=== PATIENT | male | born 1955 | race Caucasian/White ===

== ENCOUNTER → 2016-10-13 | Outpatient (CLI) | payer OTHER ==
[~2016-10-13] MED LIST: ALLO300 PO; AMMO225L14 TP; ASPI-1093 PO; CEPH500 PO; DULA0.75 SQ; GEMF600T3 PO; GLIP10 PO; LISI-660 PO; METF500T4 PO; SIMV-261 PO
[2016-10-13 12:08] VITALS: BP 140/78
== END | disposition home or self-care (01) ==
LOC: HBOWC 10:58
PROVIDERS: ATTEND Emergency Medicine
DX: E11.621 Type 2 diabetes mellitus with foot ulcer (principal); L97.511 Non-pressure chronic ulcer of other part of right foot limited to breakdown of skin; E11.69 Type 2 diabetes mellitus with other specified complication; M86.8X7 Other osteomyelitis, ankle and foot; E78.00 Pure hypercholesterolemia, unspecified; I10 Essential (primary) hypertension; E66.9 Obesity, unspecified
CPT/HCPCS: 97597

== ENCOUNTER → 2016-10-29 | Outpatient (CLI) | payer OTHER ==
[2016-10-29 09:50] VITALS: BP 138/64
== END | disposition home or self-care (01) ==
LOC: HBOWC 09:05
PROVIDERS: ATTEND Emergency Medicine
DX: E11.621 Type 2 diabetes mellitus with foot ulcer (principal); L97.514 Non-pressure chronic ulcer of other part of right foot with necrosis of bone; E11.69 Type 2 diabetes mellitus with other specified complication; M86.8X7 Other osteomyelitis, ankle and foot; I10 Essential (primary) hypertension; E66.9 Obesity, unspecified; E78.00 Pure hypercholesterolemia, unspecified; Z89.411 Acquired absence of right great toe; Z89.421 Acquired absence of other right toe(s)
CPT/HCPCS: 11044

== ENCOUNTER → 2016-11-12 | Outpatient (CLI) | payer OTHER ==
[~2016-11-12] MED LIST changes: +LIDOCAINE HCL 2% 5 ML JELLY TP ONE
[2016-11-12 14:44] VITALS: BP 129/78
== END | disposition home or self-care (01) ==
LOC: HBOWC 13:48
PROVIDERS: ATTEND Emergency Medicine
DX: E11.621 Type 2 diabetes mellitus with foot ulcer (principal); L97.514 Non-pressure chronic ulcer of other part of right foot with necrosis of bone; E11.69 Type 2 diabetes mellitus with other specified complication; M86.68 Other chronic osteomyelitis, other site; I10 Essential (primary) hypertension; E66.9 Obesity, unspecified; E78.00 Pure hypercholesterolemia, unspecified; L84 Corns and callosities; Z89.411 Acquired absence of right great toe
CPT/HCPCS: 11720; 97597; 97598

== ENCOUNTER → 2016-11-25 | Outpatient (CLI) | payer OTHER ==
[~2016-11-25] MED LIST changes: -LIDOCAINE HCL 2% 5 ML JELLY TP ONE
[2016-11-25 11:39] VITALS: BP 125/71
== END | disposition home or self-care (01) ==
LOC: HBOWC 10:33
PROVIDERS: ATTEND Emergency Medicine
DX: E11.621 Type 2 diabetes mellitus with foot ulcer (principal); L97.511 Non-pressure chronic ulcer of other part of right foot limited to breakdown of skin; E11.69 Type 2 diabetes mellitus with other specified complication; M86.671 Other chronic osteomyelitis, right ankle and foot; I10 Essential (primary) hypertension; E66.9 Obesity, unspecified; E78.00 Pure hypercholesterolemia, unspecified; B35.1 Tinea unguium; Z89.421 Acquired absence of other right toe(s); Z89.411 Acquired absence of right great toe
CPT/HCPCS: 97597

== ENCOUNTER → 2016-12-09 | Outpatient (CLI) | payer OTHER ==
[~2016-12-09] MED LIST changes: -SIMV-261 PO; +SIMV40 PO
[2016-12-09 11:47] VITALS: BP 140/77
== END | disposition home or self-care (01) ==
LOC: HBOWC 10:58
PROVIDERS: ATTEND Emergency Medicine
DX: E11.621 Type 2 diabetes mellitus with foot ulcer (principal); L97.511 Non-pressure chronic ulcer of other part of right foot limited to breakdown of skin; E11.69 Type 2 diabetes mellitus with other specified complication; M86.671 Other chronic osteomyelitis, right ankle and foot; B35.1 Tinea unguium; I10 Essential (primary) hypertension; E66.9 Obesity, unspecified; E78.00 Pure hypercholesterolemia, unspecified; Z89.421 Acquired absence of other right toe(s); Z89.411 Acquired absence of right great toe
CPT/HCPCS: 97597

== ENCOUNTER → 2016-12-29 | Outpatient (CLI) | payer OTHER ==
[~2016-12-29] MED LIST changes: +SIMV-261 PO; -SIMV40 PO
[2016-12-29 11:45] VITALS: BP 107/76
== END | disposition home or self-care (01) ==
LOC: HBOWC 10:50
PROVIDERS: ATTEND Emergency Medicine
DX: E11.621 Type 2 diabetes mellitus with foot ulcer (principal); L97.511 Non-pressure chronic ulcer of other part of right foot limited to breakdown of skin; E11.69 Type 2 diabetes mellitus with other specified complication; M86.671 Other chronic osteomyelitis, right ankle and foot; I10 Essential (primary) hypertension; E66.9 Obesity, unspecified; E78.00 Pure hypercholesterolemia, unspecified; Z89.411 Acquired absence of right great toe
CPT/HCPCS: 97597

== ENCOUNTER → 2017-01-12 | Outpatient (CLI) | payer OTHER ==
[~2017-01-12] MED LIST changes: -SIMV-261 PO; +SIMV40 PO
[2017-01-12 11:38] VITALS: BP 100/66
== END | disposition home or self-care (01) ==
LOC: HBOWC 10:56
PROVIDERS: ATTEND Emergency Medicine
DX: E11.621 Type 2 diabetes mellitus with foot ulcer (principal); L97.511 Non-pressure chronic ulcer of other part of right foot limited to breakdown of skin; E11.69 Type 2 diabetes mellitus with other specified complication; M86.671 Other chronic osteomyelitis, right ankle and foot; I10 Essential (primary) hypertension; E66.9 Obesity, unspecified; E78.00 Pure hypercholesterolemia, unspecified; B35.1 Tinea unguium; Z89.421 Acquired absence of other right toe(s); Z89.411 Acquired absence of right great toe
CPT/HCPCS: 97597

== ENCOUNTER → 2017-01-28 | Outpatient (CLI) | payer OTHER ==
[~2017-01-28] MED LIST changes: +CLOTRIMAZOLE 1% 15 GM CREAM TP ONE; +LIDOCAINE HCL 2% 5 ML JELLY TP ONE; +SIMV-261 PO; -SIMV40 PO
[2017-01-28 10:26] VITALS: BP 102/62
== END | disposition home or self-care (01) ==
LOC: HBOWC 09:54
PROVIDERS: ATTEND Emergency Medicine
DX: E11.621 Type 2 diabetes mellitus with foot ulcer (principal); L97.511 Non-pressure chronic ulcer of other part of right foot limited to breakdown of skin; E11.69 Type 2 diabetes mellitus with other specified complication; M86.671 Other chronic osteomyelitis, right ankle and foot; L85.9 Epidermal thickening, unspecified; B49 Unspecified mycosis; I10 Essential (primary) hypertension; E66.9 Obesity, unspecified; E78.00 Pure hypercholesterolemia, unspecified; Z89.411 Acquired absence of right great toe
CPT/HCPCS: 97597

== ENCOUNTER → 2017-02-11 | Outpatient (CLI) | payer OTHER ==
[~2017-02-11] MED LIST changes: -CEPH500 PO; -CLOTRIMAZOLE 1% 15 GM CREAM TP ONE; -LIDOCAINE HCL 2% 5 ML JELLY TP ONE
[2017-02-11 10:49] VITALS: BP 122/78
== END | disposition home or self-care (01) ==
LOC: HBOWC 09:30
PROVIDERS: ATTEND Emergency Medicine
DX: E11.621 Type 2 diabetes mellitus with foot ulcer (principal); L97.511 Non-pressure chronic ulcer of other part of right foot limited to breakdown of skin; E11.69 Type 2 diabetes mellitus with other specified complication; M86.8X7 Other osteomyelitis, ankle and foot; E78.00 Pure hypercholesterolemia, unspecified; B35.1 Tinea unguium; E66.9 Obesity, unspecified; Z89.411 Acquired absence of right great toe
CPT/HCPCS: 97597

== ENCOUNTER → 2017-02-25 | Outpatient (CLI) | payer OTHER ==
[2017-02-25 13:11] VITALS: BP 108/66
== END | disposition home or self-care (01) ==
LOC: HBOWC 09:50
PROVIDERS: ATTEND Emergency Medicine
DX: E11.621 Type 2 diabetes mellitus with foot ulcer (principal); L97.511 Non-pressure chronic ulcer of other part of right foot limited to breakdown of skin; E11.69 Type 2 diabetes mellitus with other specified complication; M86.671 Other chronic osteomyelitis, right ankle and foot; E66.9 Obesity, unspecified; Z89.411 Acquired absence of right great toe
CPT/HCPCS: 97597

== ENCOUNTER → 2017-03-01 | Outpatient (CLI) | payer OTHER ==
[2017-03-01 11:26] VITALS: BP 100/64
== END | disposition home or self-care (01) ==
LOC: HBOWC 09:46
PROVIDERS: ATTEND Emergency Medicine Undersea and Hyperbaric Medicine
DX: E11.621 Type 2 diabetes mellitus with foot ulcer (principal); L97.511 Non-pressure chronic ulcer of other part of right foot limited to breakdown of skin; E11.69 Type 2 diabetes mellitus with other specified complication; M86.671 Other chronic osteomyelitis, right ankle and foot; E78.00 Pure hypercholesterolemia, unspecified; I10 Essential (primary) hypertension; E66.9 Obesity, unspecified; B35.1 Tinea unguium; Z89.411 Acquired absence of right great toe; Z89.421 Acquired absence of other right toe(s)
CPT/HCPCS: 97597

== ENCOUNTER → 2017-03-09 | Outpatient (CLI) | payer OTHER ==
[2017-03-09 10:22] VITALS: BP 100/62
== END | disposition home or self-care (01) ==
LOC: HBOWC 09:28
PROVIDERS: ATTEND Emergency Medicine
DX: E11.621 Type 2 diabetes mellitus with foot ulcer (principal); L97.511 Non-pressure chronic ulcer of other part of right foot limited to breakdown of skin; E11.69 Type 2 diabetes mellitus with other specified complication; M86.671 Other chronic osteomyelitis, right ankle and foot; B35.1 Tinea unguium; I10 Essential (primary) hypertension; E66.9 Obesity, unspecified; E78.00 Pure hypercholesterolemia, unspecified; Z89.411 Acquired absence of right great toe; Z89.421 Acquired absence of other right toe(s)
CPT/HCPCS: 97597

== ENCOUNTER → 2017-03-24 | Outpatient (CLI) | payer OTHER ==
[~2017-03-24] MED LIST changes: +BACTDSB PO
[2017-03-24 10:18] VITALS: BP 126/71
== END | disposition home or self-care (01) ==
LOC: HBOWC 09:56
PROVIDERS: ATTEND Emergency Medicine Undersea and Hyperbaric Medicine
DX: E11.621 Type 2 diabetes mellitus with foot ulcer (principal); L97.511 Non-pressure chronic ulcer of other part of right foot limited to breakdown of skin; I10 Essential (primary) hypertension; E66.9 Obesity, unspecified; E11.69 Type 2 diabetes mellitus with other specified complication; M86.671 Other chronic osteomyelitis, right ankle and foot; E78.00 Pure hypercholesterolemia, unspecified; B35.1 Tinea unguium; L60.3 Nail dystrophy; Z89.411 Acquired absence of right great toe; Z89.421 Acquired absence of other right toe(s)
CPT/HCPCS: 97597

== ENCOUNTER → 2017-04-18 | Outpatient (CLI) | payer OTHER ==
[2017-04-18 10:36] VITALS: BP 102/64
== END | disposition home or self-care (01) ==
LOC: HBOWC 10:17
PROVIDERS: ATTEND Emergency Medicine
DX: E11.621 Type 2 diabetes mellitus with foot ulcer (principal); L97.511 Non-pressure chronic ulcer of other part of right foot limited to breakdown of skin; E11.69 Type 2 diabetes mellitus with other specified complication; M86.671 Other chronic osteomyelitis, right ankle and foot; I10 Essential (primary) hypertension; E66.9 Obesity, unspecified; E78.00 Pure hypercholesterolemia, unspecified; B35.1 Tinea unguium; Z89.421 Acquired absence of other right toe(s); Z89.411 Acquired absence of right great toe
CPT/HCPCS: 11720; 97597

== ENCOUNTER → 2017-05-02 | Outpatient (CLI) | payer OTHER ==
[~2017-05-02] MED LIST changes: +LIDOCAINE HCL 2% 5 ML JELLY TP ONE
[2017-05-02 10:37] VITALS: BP 129/66
== END | disposition home or self-care (01) ==
LOC: HBOWC 10:26
PROVIDERS: ATTEND Emergency Medicine
DX: E11.621 Type 2 diabetes mellitus with foot ulcer (principal); L97.511 Non-pressure chronic ulcer of other part of right foot limited to breakdown of skin; E66.9 Obesity, unspecified; E11.69 Type 2 diabetes mellitus with other specified complication; M86.671 Other chronic osteomyelitis, right ankle and foot; E78.00 Pure hypercholesterolemia, unspecified; B35.1 Tinea unguium; L60.3 Nail dystrophy; I10 Essential (primary) hypertension; Z89.411 Acquired absence of right great toe
CPT/HCPCS: 97597

== ENCOUNTER → 2017-06-01 | Outpatient (CLI) | payer OTHER ==
[~2017-06-01] MED LIST changes: -ASPI-1093 PO; +ASPI-1182 PO; -LIDOCAINE HCL 2% 5 ML JELLY TP ONE
[2017-06-01 11:27] VITALS: BP 106/58
== END | disposition home or self-care (01) ==
LOC: HBOWC 11:00
PROVIDERS: ATTEND Internal Medicine
DX: E11.621 Type 2 diabetes mellitus with foot ulcer (principal); L97.511 Non-pressure chronic ulcer of other part of right foot limited to breakdown of skin; E66.9 Obesity, unspecified; E11.69 Type 2 diabetes mellitus with other specified complication; M86.671 Other chronic osteomyelitis, right ankle and foot; E78.00 Pure hypercholesterolemia, unspecified; B35.1 Tinea unguium; I10 Essential (primary) hypertension; L60.3 Nail dystrophy; Z89.411 Acquired absence of right great toe
CPT/HCPCS: 11042

== ENCOUNTER → 2017-06-08 | Outpatient (CLI) | payer OTHER ==
[~2017-06-08] MED LIST changes: +LIDOCAINE HCL 2% 5 ML JELLY TP ONE
[2017-06-08 11:24] VITALS: BP 105/64
== END | disposition home or self-care (01) ==
LOC: HBOWC 11:04
PROVIDERS: ATTEND Internal Medicine
DX: E11.621 Type 2 diabetes mellitus with foot ulcer (principal); L97.511 Non-pressure chronic ulcer of other part of right foot limited to breakdown of skin; E11.69 Type 2 diabetes mellitus with other specified complication; M86.671 Other chronic osteomyelitis, right ankle and foot; I10 Essential (primary) hypertension; E66.9 Obesity, unspecified; E78.00 Pure hypercholesterolemia, unspecified; B35.1 Tinea unguium; Z89.411 Acquired absence of right great toe
CPT/HCPCS: 11042

== ENCOUNTER → 2017-06-15 | Outpatient (CLI) | payer OTHER ==
[~2017-06-15] MED LIST changes: +CLOTRIMAZOLE 1% 15 GM CREAM TP ONE; +DOXY100C PO; +LIDOCAINE HCL 2% 5 ML JELLY ONE; -LIDOCAINE HCL 2% 5 ML JELLY TP ONE
[2017-06-15 15:14] VITALS: BP 126/88
== END | disposition home or self-care (01) ==
LOC: HBOWC 14:05
PROVIDERS: ATTEND Internal Medicine
DX: E11.621 Type 2 diabetes mellitus with foot ulcer (principal); L97.511 Non-pressure chronic ulcer of other part of right foot limited to breakdown of skin; E11.69 Type 2 diabetes mellitus with other specified complication; M86.671 Other chronic osteomyelitis, right ankle and foot; I10 Essential (primary) hypertension; E78.00 Pure hypercholesterolemia, unspecified; B35.1 Tinea unguium; L60.3 Nail dystrophy; Z89.421 Acquired absence of other right toe(s); Z89.411 Acquired absence of right great toe
CPT/HCPCS: 11720

== ENCOUNTER → 2017-06-24 | Outpatient (CLI) | payer OTHER ==
[~2017-06-24] MED LIST changes: -BACTDSB PO; -CLOTRIMAZOLE 1% 15 GM CREAM TP ONE; +GADOBUTROL 1 MMOL/ML 10 ML VIAL IVP ONE; -LIDOCAINE HCL 2% 5 ML JELLY ONE
== END | disposition home or self-care (01) ==
LOC: RADMN 12:28
PROVIDERS: ATTEND Nurse Practitioner Adult Health
DX: M86.8X7 Other osteomyelitis, ankle and foot (principal); M62.571 Muscle wasting and atrophy, not elsewhere classified, right ankle and foot; M19.071 Primary osteoarthritis, right ankle and foot
CPT/HCPCS: 73720; A9585

== ENCOUNTER → 2017-06-24 | Outpatient (CLI) | payer OTHER ==
[~2017-06-24] MED LIST changes: +BACTDSB PO; -GADOBUTROL 1 MMOL/ML 10 ML VIAL IVP ONE; +LIDOCAINE HCL 2% 5 ML JELLY TP ONE
[2017-06-24 13:37] VITALS: BP 105/60
== END | disposition home or self-care (01) ==
LOC: HBOWC 09:31
PROVIDERS: ATTEND Orthopaedic Surgery
DX: E11.621 Type 2 diabetes mellitus with foot ulcer (principal); L97.514 Non-pressure chronic ulcer of other part of right foot with necrosis of bone; E11.69 Type 2 diabetes mellitus with other specified complication; M86.671 Other chronic osteomyelitis, right ankle and foot; I10 Essential (primary) hypertension; E78.00 Pure hypercholesterolemia, unspecified; L60.3 Nail dystrophy; B35.1 Tinea unguium; E66.9 Obesity, unspecified; Z89.411 Acquired absence of right great toe; Z89.421 Acquired absence of other right toe(s)
CPT/HCPCS: 11042

== ENCOUNTER 2017-06-27 09:17 | Emergency (ER) | payer OTHER ==
[~2017-06-27] VITALS: Ht 182.9 cm; Wt 100.0 kg
[~2017-06-27 09:17] MED LIST changes: -BACTDSB PO; -LIDOCAINE HCL 2% 5 ML JELLY TP ONE
[2017-06-27 09:42] LABS: GLUCOSE,POINT OF CARE 231 MG/DL (70-110)
[2017-06-27 10:54] VITALS: BP 109/70
== END 2017-06-27 11:36 | disposition home or self-care (01) ==
LOC: EMS 09:20
DX: Z48.00 Encounter for change or removal of nonsurgical wound dressing (principal); S91.301D Unspecified open wound, right foot, subsequent encounter; E11.9 Type 2 diabetes mellitus without complications; X58.XXXD Exposure to other specified factors, subsequent encounter
CPT/HCPCS: 82962; 99283

== ENCOUNTER → 2017-07-08 | Outpatient (CLI) | payer OTHER ==
[~2017-07-08] MED LIST changes: +LIDOCAINE HCL 2% 5 ML JELLY TP ONE
[2017-07-08 10:38] VITALS: BP 132/71
== END | disposition home or self-care (01) ==
LOC: HBOWC 09:57
PROVIDERS: ATTEND Emergency Medicine
DX: E11.621 Type 2 diabetes mellitus with foot ulcer (principal); L97.514 Non-pressure chronic ulcer of other part of right foot with necrosis of bone; E11.69 Type 2 diabetes mellitus with other specified complication; M86.671 Other chronic osteomyelitis, right ankle and foot; I10 Essential (primary) hypertension; L84 Corns and callosities; E66.9 Obesity, unspecified; E78.00 Pure hypercholesterolemia, unspecified; B35.1 Tinea unguium; M19.071 Primary osteoarthritis, right ankle and foot; Z89.411 Acquired absence of right great toe; Z89.421 Acquired absence of other right toe(s)
CPT/HCPCS: 11042

== ENCOUNTER → 2017-07-15 | Outpatient (CLI) | payer OTHER ==
[2017-07-15 10:44] VITALS: BP 112/66
== END | disposition home or self-care (01) ==
LOC: HBOWC 09:41
PROVIDERS: ATTEND Emergency Medicine
DX: E11.621 Type 2 diabetes mellitus with foot ulcer (principal); L97.514 Non-pressure chronic ulcer of other part of right foot with necrosis of bone; E11.69 Type 2 diabetes mellitus with other specified complication; M86.671 Other chronic osteomyelitis, right ankle and foot; I10 Essential (primary) hypertension; L84 Corns and callosities; M19.071 Primary osteoarthritis, right ankle and foot; E78.00 Pure hypercholesterolemia, unspecified; B35.1 Tinea unguium; E66.9 Obesity, unspecified; Z89.421 Acquired absence of other right toe(s); Z89.411 Acquired absence of right great toe
CPT/HCPCS: 11042

== ENCOUNTER → 2017-08-02 | Outpatient (CLI) | payer OTHER ==
[2017-08-02 11:54] VITALS: BP 136/72
== END | disposition home or self-care (01) ==
LOC: HBOWC 10:50
PROVIDERS: ATTEND Emergency Medicine
DX: E11.621 Type 2 diabetes mellitus with foot ulcer (principal); L97.514 Non-pressure chronic ulcer of other part of right foot with necrosis of bone; L84 Corns and callosities; B35.1 Tinea unguium; L60.3 Nail dystrophy; E11.69 Type 2 diabetes mellitus with other specified complication; M86.671 Other chronic osteomyelitis, right ankle and foot; I10 Essential (primary) hypertension; M19.071 Primary osteoarthritis, right ankle and foot; E78.00 Pure hypercholesterolemia, unspecified; E66.9 Obesity, unspecified; Z89.411 Acquired absence of right great toe; Z89.421 Acquired absence of other right toe(s)
CPT/HCPCS: 11042

== ENCOUNTER → 2017-08-09 | Outpatient (CLI) | payer OTHER ==
[~2017-08-09] MED LIST changes: -LIDOCAINE HCL 2% 5 ML JELLY TP ONE
[2017-08-09 13:44] VITALS: BP 123/69
== END | disposition home or self-care (01) ==
LOC: HBOWC 13:01
PROVIDERS: ATTEND Emergency Medicine
DX: E11.621 Type 2 diabetes mellitus with foot ulcer (principal); L97.511 Non-pressure chronic ulcer of other part of right foot limited to breakdown of skin; E11.69 Type 2 diabetes mellitus with other specified complication; M86.8X8 Other osteomyelitis, other site; L84 Corns and callosities; I10 Essential (primary) hypertension; L60.3 Nail dystrophy; E66.9 Obesity, unspecified; E78.00 Pure hypercholesterolemia, unspecified; B35.1 Tinea unguium; Z89.421 Acquired absence of other right toe(s)
CPT/HCPCS: 11042

== ENCOUNTER → 2017-08-16 | Outpatient (CLI) | payer OTHER ==
[~2017-08-16] MED LIST changes: +LIDOCAINE HCL 2% 5 ML JELLY TP ONE
[2017-08-16 12:02] VITALS: BP 108/59
[2017-08-16 12:33] LABS: GLUCOSE COMMENT 1 Doctor Notified; GLUCOSE,POINT OF CARE 181 MG/DL (70-110)
== END | disposition home or self-care (01) ==
LOC: HBOWC 11:11
PROVIDERS: ATTEND Emergency Medicine
DX: E11.621 Type 2 diabetes mellitus with foot ulcer (principal); L97.511 Non-pressure chronic ulcer of other part of right foot limited to breakdown of skin; E11.69 Type 2 diabetes mellitus with other specified complication; M86.671 Other chronic osteomyelitis, right ankle and foot; B35.1 Tinea unguium; L60.3 Nail dystrophy; I10 Essential (primary) hypertension; E66.9 Obesity, unspecified; E78.00 Pure hypercholesterolemia, unspecified; M19.071 Primary osteoarthritis, right ankle and foot; Z89.411 Acquired absence of right great toe; Z89.421 Acquired absence of other right toe(s)
CPT/HCPCS: 11042; 82962

== ENCOUNTER → 2017-08-19 | Outpatient (CLI) | payer OTHER ==
[~2017-08-19] MED LIST changes: -LIDOCAINE HCL 2% 5 ML JELLY TP ONE
[2017-08-19 11:28] VITALS: BP 100/58
== END | disposition home or self-care (01) ==
LOC: HBOWC 10:41
PROVIDERS: ATTEND Podiatrist
DX: E11.621 Type 2 diabetes mellitus with foot ulcer (principal); L97.511 Non-pressure chronic ulcer of other part of right foot limited to breakdown of skin; E11.69 Type 2 diabetes mellitus with other specified complication; M86.8X8 Other osteomyelitis, other site; L60.3 Nail dystrophy; E66.9 Obesity, unspecified; E78.00 Pure hypercholesterolemia, unspecified; B35.1 Tinea unguium; L84 Corns and callosities; I10 Essential (primary) hypertension; Z89.421 Acquired absence of other right toe(s)
CPT/HCPCS: 97597

== ENCOUNTER → 2017-09-13 | Outpatient (CLI) | payer OTHER ==
[~2017-09-13] MED LIST changes: +LIDOCAINE HCL 2% 5 ML JELLY TP ONE
[2017-09-13 11:17] VITALS: BP 108/59
== END | disposition home or self-care (01) ==
LOC: HBOWC 09:47
PROVIDERS: ATTEND Emergency Medicine
DX: T87.89 Other complications of amputation stump (principal); E11.621 Type 2 diabetes mellitus with foot ulcer; L97.511 Non-pressure chronic ulcer of other part of right foot limited to breakdown of skin; L84 Corns and callosities; I10 Essential (primary) hypertension; E66.9 Obesity, unspecified; E11.69 Type 2 diabetes mellitus with other specified complication; M86.8X7 Other osteomyelitis, ankle and foot; Y83.5 Amputation of limb(s) as the cause of abnormal reaction of the patient, or of later complication, without mention of misadventure at the time of the procedure
CPT/HCPCS: 11042

== ENCOUNTER → 2017-09-20 | Outpatient (CLI) | payer OTHER ==
[~2017-09-20] MED LIST changes: -LIDOCAINE HCL 2% 5 ML JELLY TP ONE
[2017-09-20 10:55] VITALS: BP 139/77
== END | disposition home or self-care (01) ==
LOC: HBOWC 10:46
PROVIDERS: ATTEND Emergency Medicine
DX: E11.621 Type 2 diabetes mellitus with foot ulcer (principal); L97.511 Non-pressure chronic ulcer of other part of right foot limited to breakdown of skin; L84 Corns and callosities; I10 Essential (primary) hypertension; E11.69 Type 2 diabetes mellitus with other specified complication; M86.8X7 Other osteomyelitis, ankle and foot; E78.00 Pure hypercholesterolemia, unspecified
CPT/HCPCS: 11042

== ENCOUNTER → 2017-09-27 | Outpatient (CLI) | payer OTHER ==
[2017-09-27 12:18] LABS: GLUCOMETER DEV NAME(LOC) HBW; GLUCOSE,POINT OF CARE 178 MG/DL (70-110)
[2017-09-27 12:27] VITALS: BP 117/67
== END | disposition home or self-care (01) ==
LOC: HBOWC 11:17
PROVIDERS: ATTEND Emergency Medicine
DX: E11.621 Type 2 diabetes mellitus with foot ulcer (principal); L97.511 Non-pressure chronic ulcer of other part of right foot limited to breakdown of skin; E11.69 Type 2 diabetes mellitus with other specified complication; M86.671 Other chronic osteomyelitis, right ankle and foot; B35.1 Tinea unguium; I10 Essential (primary) hypertension; E78.00 Pure hypercholesterolemia, unspecified; E66.9 Obesity, unspecified; L84 Corns and callosities; Z89.411 Acquired absence of right great toe; Z89.421 Acquired absence of other right toe(s)
CPT/HCPCS: 11042; 82962

== ENCOUNTER → 2017-10-03 | Outpatient (CLI) | payer OTHER ==
[~2017-10-03] MED LIST changes: +LIDOCAINE HCL 2% 5 ML JELLY TP ONE
[2017-10-03 12:23] VITALS: BP 142/71
== END | disposition home or self-care (01) ==
LOC: HBOWC 10:51
PROVIDERS: ATTEND Surgery Plastic and Reconstructive Surgery
DX: T87.89 Other complications of amputation stump (principal); E11.621 Type 2 diabetes mellitus with foot ulcer; L97.512 Non-pressure chronic ulcer of other part of right foot with fat layer exposed; E11.69 Type 2 diabetes mellitus with other specified complication; M86.671 Other chronic osteomyelitis, right ankle and foot; L84 Corns and callosities; I10 Essential (primary) hypertension; B35.1 Tinea unguium; L60.3 Nail dystrophy; M19.071 Primary osteoarthritis, right ankle and foot; E66.9 Obesity, unspecified; Y83.5 Amputation of limb(s) as the cause of abnormal reaction of the patient, or of later complication, without mention of misadventure at the time of the procedure
CPT/HCPCS: 11042

== ENCOUNTER → 2017-10-11 | Outpatient (CLI) | payer OTHER ==
[~2017-10-11] MED LIST changes: +COLLAGENASE 250 UNITS/GM 30 GM OINTMENT TP ONE
[2017-10-11 12:05] VITALS: BP 113/60
== END | disposition home or self-care (01) ==
LOC: HBOWC 10:55
PROVIDERS: ATTEND Emergency Medicine
DX: T87.89 Other complications of amputation stump (principal); E11.69 Type 2 diabetes mellitus with other specified complication; L84 Corns and callosities; I10 Essential (primary) hypertension; E66.9 Obesity, unspecified; B35.1 Tinea unguium; M86.8X7 Other osteomyelitis, ankle and foot; E78.00 Pure hypercholesterolemia, unspecified; Y83.5 Amputation of limb(s) as the cause of abnormal reaction of the patient, or of later complication, without mention of misadventure at the time of the procedure
CPT/HCPCS: 11042

== ENCOUNTER → 2017-10-14 | Outpatient (CLI) | payer OTHER ==
[~2017-10-14] MED LIST changes: -AMMO225L14 TP; -COLLAGENASE 250 UNITS/GM 30 GM OINTMENT TP ONE; -DOXY100C PO; -LIDOCAINE HCL 2% 5 ML JELLY TP ONE
[2017-10-14 12:05] VITALS: BP 115/65
== END | disposition home or self-care (01) ==
LOC: HBOWC 10:52
PROVIDERS: ATTEND Podiatrist
DX: S91.101D Unspecified open wound of right great toe without damage to nail, subsequent encounter (principal); B35.1 Tinea unguium; E11.69 Type 2 diabetes mellitus with other specified complication; M86.671 Other chronic osteomyelitis, right ankle and foot; I10 Essential (primary) hypertension; E66.9 Obesity, unspecified; E78.00 Pure hypercholesterolemia, unspecified; M19.071 Primary osteoarthritis, right ankle and foot; Z89.421 Acquired absence of other right toe(s); Z89.411 Acquired absence of right great toe; X58.XXXD Exposure to other specified factors, subsequent encounter
CPT/HCPCS: 11042

== ENCOUNTER → 2017-10-17 | Outpatient (CLI) | payer OTHER | END | disposition home or self-care (01) | LOC: RADPV 11:05 | PROVIDERS: ATTEND Surgery Plastic and Reconstructive Surgery | DX: Z13.6 Encounter for screening for cardiovascular disorders (principal); E11.621 Type 2 diabetes mellitus with foot ulcer; L97.519 Non-pressure chronic ulcer of other part of right foot with unspecified severity; M86.8X8 Other osteomyelitis, other site | CPT/HCPCS: 93880; 93922 ==

== ENCOUNTER → 2017-10-21 | Outpatient (CLI) | payer OTHER ==
[~2017-10-21] MED LIST changes: +LIDOCAINE HCL 2% 5 ML JELLY TP ONE
[2017-10-21 08:15] VITALS: BP 136/66
== END | disposition home or self-care (01) ==
LOC: HBOWC 07:36
PROVIDERS: ATTEND Podiatrist
DX: T87.89 Other complications of amputation stump (principal); E11.621 Type 2 diabetes mellitus with foot ulcer; L97.511 Non-pressure chronic ulcer of other part of right foot limited to breakdown of skin; B35.1 Tinea unguium; E11.69 Type 2 diabetes mellitus with other specified complication; M86.671 Other chronic osteomyelitis, right ankle and foot; I10 Essential (primary) hypertension; E66.9 Obesity, unspecified; M19.071 Primary osteoarthritis, right ankle and foot; E78.00 Pure hypercholesterolemia, unspecified; Z89.421 Acquired absence of other right toe(s); Z89.411 Acquired absence of right great toe; Y83.5 Amputation of limb(s) as the cause of abnormal reaction of the patient, or of later complication, without mention of misadventure at the time of the procedure
CPT/HCPCS: 11042; 93922

== ENCOUNTER → 2017-11-04 | Outpatient (CLI) | payer OTHER ==
[~2017-11-04] MED LIST changes: +CHLORHEXIDINE GLUCONATE 4% 118 ML TOPICAL LIQUID TP ONE
[2017-11-04 11:18] VITALS: BP 134/63
== END | disposition home or self-care (01) ==
LOC: HBOWC 10:43
PROVIDERS: ATTEND Podiatrist
DX: S91.101D Unspecified open wound of right great toe without damage to nail, subsequent encounter (principal); E11.69 Type 2 diabetes mellitus with other specified complication; M86.671 Other chronic osteomyelitis, right ankle and foot; I10 Essential (primary) hypertension; E66.9 Obesity, unspecified; M19.071 Primary osteoarthritis, right ankle and foot; E78.00 Pure hypercholesterolemia, unspecified; B35.1 Tinea unguium; L84 Corns and callosities; Z89.411 Acquired absence of right great toe; Z89.421 Acquired absence of other right toe(s); X58.XXXD Exposure to other specified factors, subsequent encounter
CPT/HCPCS: 11042

== ENCOUNTER → 2017-11-10 | Outpatient (CLI) | payer OTHER ==
[~2017-11-10] MED LIST changes: -CHLORHEXIDINE GLUCONATE 4% 118 ML TOPICAL LIQUID TP ONE; +GADOBUTROL 1 MMOL/ML 10 ML VIAL IVP ONE; -LIDOCAINE HCL 2% 5 ML JELLY TP ONE
== END | disposition home or self-care (01) ==
LOC: RADMN 12:41
PROVIDERS: ATTEND Podiatrist
DX: M86.671 Other chronic osteomyelitis, right ankle and foot (principal); E11.621 Type 2 diabetes mellitus with foot ulcer
CPT/HCPCS: 73720; A9585

== ENCOUNTER → 2017-11-11 | Outpatient (CLI) | payer OTHER ==
[~2017-11-11] MED LIST changes: -GADOBUTROL 1 MMOL/ML 10 ML VIAL IVP ONE
[2017-11-11 10:04] VITALS: BP 116/78
== END | disposition home or self-care (01) ==
LOC: HBOWC 09:47
PROVIDERS: ATTEND Podiatrist
DX: T87.89 Other complications of amputation stump (principal); E11.621 Type 2 diabetes mellitus with foot ulcer; L97.511 Non-pressure chronic ulcer of other part of right foot limited to breakdown of skin; E11.69 Type 2 diabetes mellitus with other specified complication; M86.671 Other chronic osteomyelitis, right ankle and foot; L84 Corns and callosities; I10 Essential (primary) hypertension; E66.9 Obesity, unspecified; M19.071 Primary osteoarthritis, right ankle and foot; E78.00 Pure hypercholesterolemia, unspecified; B35.1 Tinea unguium; Y83.5 Amputation of limb(s) as the cause of abnormal reaction of the patient, or of later complication, without mention of misadventure at the time of the procedure
CPT/HCPCS: 11042

== ENCOUNTER → 2017-11-18 | Outpatient (CLI) | payer OTHER ==
[2017-11-18 10:07] VITALS: BP 140/73
== END | disposition home or self-care (01) ==
LOC: HBOWC 09:41
PROVIDERS: ATTEND Podiatrist
DX: T87.89 Other complications of amputation stump (principal); E11.621 Type 2 diabetes mellitus with foot ulcer; L97.512 Non-pressure chronic ulcer of other part of right foot with fat layer exposed; E11.69 Type 2 diabetes mellitus with other specified complication; M86.671 Other chronic osteomyelitis, right ankle and foot; L84 Corns and callosities; I10 Essential (primary) hypertension; E66.9 Obesity, unspecified; M19.071 Primary osteoarthritis, right ankle and foot; E78.00 Pure hypercholesterolemia, unspecified; B35.1 Tinea unguium; Y83.5 Amputation of limb(s) as the cause of abnormal reaction of the patient, or of later complication, without mention of misadventure at the time of the procedure
CPT/HCPCS: 11042

== ENCOUNTER → 2017-11-25 | Outpatient (CLI) | payer OTHER ==
[2017-11-25 11:52] VITALS: BP 117/80
== END | disposition home or self-care (01) ==
LOC: HBOWC 09:51
PROVIDERS: ATTEND Podiatrist
DX: T87.89 Other complications of amputation stump (principal); E11.621 Type 2 diabetes mellitus with foot ulcer; L97.511 Non-pressure chronic ulcer of other part of right foot limited to breakdown of skin; E11.69 Type 2 diabetes mellitus with other specified complication; M86.671 Other chronic osteomyelitis, right ankle and foot; I10 Essential (primary) hypertension; E66.9 Obesity, unspecified; M19.071 Primary osteoarthritis, right ankle and foot; E78.00 Pure hypercholesterolemia, unspecified; L84 Corns and callosities; Z89.421 Acquired absence of other right toe(s); Z89.411 Acquired absence of right great toe; Y83.5 Amputation of limb(s) as the cause of abnormal reaction of the patient, or of later complication, without mention of misadventure at the time of the procedure
CPT/HCPCS: 11042

== ENCOUNTER → 2017-12-02 | Outpatient (CLI) | payer OTHER ==
[~2017-12-02] MED LIST changes: +LIDOCAINE HCL 2% 5 ML JELLY TP ONE
[2017-12-02 09:50] VITALS: BP 115/78
== END | disposition home or self-care (01) ==
LOC: HBOWC 09:27
PROVIDERS: ATTEND Podiatrist
DX: T87.89 Other complications of amputation stump (principal); E11.621 Type 2 diabetes mellitus with foot ulcer; L97.511 Non-pressure chronic ulcer of other part of right foot limited to breakdown of skin; I10 Essential (primary) hypertension; E66.9 Obesity, unspecified; E11.69 Type 2 diabetes mellitus with other specified complication; M86.671 Other chronic osteomyelitis, right ankle and foot; M19.071 Primary osteoarthritis, right ankle and foot; E78.00 Pure hypercholesterolemia, unspecified; B35.1 Tinea unguium; Y83.5 Amputation of limb(s) as the cause of abnormal reaction of the patient, or of later complication, without mention of misadventure at the time of the procedure
CPT/HCPCS: 11042

== ENCOUNTER → 2017-12-09 | Outpatient (CLI) | payer OTHER ==
[~2017-12-09] MED LIST changes: -LIDOCAINE HCL 2% 5 ML JELLY TP ONE
[2017-12-09 10:06] VITALS: BP 128/64
== END | disposition home or self-care (01) ==
LOC: HBOWC 09:23
PROVIDERS: ATTEND Podiatrist
DX: T87.81 Dehiscence of amputation stump (principal); E11.621 Type 2 diabetes mellitus with foot ulcer; L97.511 Non-pressure chronic ulcer of other part of right foot limited to breakdown of skin; E11.69 Type 2 diabetes mellitus with other specified complication; M86.671 Other chronic osteomyelitis, right ankle and foot; M19.071 Primary osteoarthritis, right ankle and foot; E78.00 Pure hypercholesterolemia, unspecified; B35.1 Tinea unguium; E66.9 Obesity, unspecified; L84 Corns and callosities; I10 Essential (primary) hypertension; Y83.5 Amputation of limb(s) as the cause of abnormal reaction of the patient, or of later complication, without mention of misadventure at the time of the procedure
CPT/HCPCS: 11042

== ENCOUNTER → 2017-12-16 | Outpatient (CLI) | payer OTHER ==
[2017-12-16 10:00] VITALS: BP 126/82
== END | disposition home or self-care (01) ==
LOC: HBOWC 09:59
PROVIDERS: ATTEND Podiatrist
DX: E11.621 Type 2 diabetes mellitus with foot ulcer (principal); L97.511 Non-pressure chronic ulcer of other part of right foot limited to breakdown of skin; E11.69 Type 2 diabetes mellitus with other specified complication; M86.671 Other chronic osteomyelitis, right ankle and foot; B35.1 Tinea unguium; I10 Essential (primary) hypertension; E66.9 Obesity, unspecified; M19.071 Primary osteoarthritis, right ankle and foot; E78.00 Pure hypercholesterolemia, unspecified; Z89.421 Acquired absence of other right toe(s); Z89.411 Acquired absence of right great toe
CPT/HCPCS: 11042

== ENCOUNTER → 2017-12-23 | Outpatient (CLI) | payer OTHER ==
[2017-12-23 09:58] VITALS: BP 107/72
== END | disposition home or self-care (01) ==
LOC: HBOWC 09:12
PROVIDERS: ATTEND Podiatrist
DX: T87.89 Other complications of amputation stump (principal); E11.621 Type 2 diabetes mellitus with foot ulcer; L97.511 Non-pressure chronic ulcer of other part of right foot limited to breakdown of skin; B35.1 Tinea unguium; Y83.5 Amputation of limb(s) as the cause of abnormal reaction of the patient, or of later complication, without mention of misadventure at the time of the procedure
CPT/HCPCS: 11042

== ENCOUNTER → 2017-12-30 | Outpatient (CLI) | payer OTHER ==
[~2017-12-30] MED LIST changes: +LIDOCAINE HCL 2% 5 ML JELLY TP ONE
[2017-12-30 10:04] VITALS: BP 101/63
== END | disposition home or self-care (01) ==
LOC: HBOWC 09:27
PROVIDERS: ATTEND Podiatrist
DX: E11.621 Type 2 diabetes mellitus with foot ulcer (principal); L97.511 Non-pressure chronic ulcer of other part of right foot limited to breakdown of skin; E11.69 Type 2 diabetes mellitus with other specified complication; M86.671 Other chronic osteomyelitis, right ankle and foot; B35.1 Tinea unguium; E66.9 Obesity, unspecified; M19.071 Primary osteoarthritis, right ankle and foot; E78.00 Pure hypercholesterolemia, unspecified; L84 Corns and callosities; Z89.9 Acquired absence of limb, unspecified
CPT/HCPCS: 11042

== ENCOUNTER → 2018-01-06 | Outpatient (CLI) | payer OTHER ==
[2018-01-06 10:17] VITALS: BP 116/71
== END | disposition home or self-care (01) ==
LOC: HBOWC 09:14
PROVIDERS: ATTEND Podiatrist
DX: T87.89 Other complications of amputation stump (principal); E11.621 Type 2 diabetes mellitus with foot ulcer; L97.511 Non-pressure chronic ulcer of other part of right foot limited to breakdown of skin; B35.1 Tinea unguium; E11.69 Type 2 diabetes mellitus with other specified complication; M86.8X7 Other osteomyelitis, ankle and foot; Y83.5 Amputation of limb(s) as the cause of abnormal reaction of the patient, or of later complication, without mention of misadventure at the time of the procedure
CPT/HCPCS: 11042

== ENCOUNTER → 2018-01-13 | Outpatient (CLI) | payer OTHER ==
[~2018-01-13] MED LIST changes: +COLL30OI TP; -LIDOCAINE HCL 2% 5 ML JELLY TP ONE; -METF500T4 PO; +METF500T6 PO
[2018-01-13 10:05] VITALS: BP 111/72
== END | disposition home or self-care (01) ==
LOC: HBOWC 09:50
PROVIDERS: ATTEND Podiatrist
DX: T87.89 Other complications of amputation stump (principal); E11.621 Type 2 diabetes mellitus with foot ulcer; L97.511 Non-pressure chronic ulcer of other part of right foot limited to breakdown of skin; E11.69 Type 2 diabetes mellitus with other specified complication; M86.671 Other chronic osteomyelitis, right ankle and foot; B35.1 Tinea unguium; L84 Corns and callosities; E66.9 Obesity, unspecified; M19.071 Primary osteoarthritis, right ankle and foot; I10 Essential (primary) hypertension; Z89.9 Acquired absence of limb, unspecified; Y83.5 Amputation of limb(s) as the cause of abnormal reaction of the patient, or of later complication, without mention of misadventure at the time of the procedure
CPT/HCPCS: 11042

== ENCOUNTER → 2018-01-27 | Outpatient (CLI) | payer OTHER ==
[2018-01-27 11:05] VITALS: BP 126/71
== END | disposition home or self-care (01) ==
LOC: HBOWC 09:53
PROVIDERS: ATTEND Podiatrist
DX: T87.89 Other complications of amputation stump (principal); E11.621 Type 2 diabetes mellitus with foot ulcer; L97.511 Non-pressure chronic ulcer of other part of right foot limited to breakdown of skin; E11.69 Type 2 diabetes mellitus with other specified complication; M86.8X7 Other osteomyelitis, ankle and foot; B35.1 Tinea unguium; I10 Essential (primary) hypertension; M19.071 Primary osteoarthritis, right ankle and foot; E78.00 Pure hypercholesterolemia, unspecified; Y83.5 Amputation of limb(s) as the cause of abnormal reaction of the patient, or of later complication, without mention of misadventure at the time of the procedure
CPT/HCPCS: 11042

== ENCOUNTER → 2018-02-03 | Outpatient (CLI) | payer OTHER ==
[~2018-02-03] MED LIST changes: -COLL30OI TP
[2018-02-03 11:44] VITALS: BP 101/68
== END | disposition home or self-care (01) ==
LOC: HBOWC 10:42
PROVIDERS: ATTEND Podiatrist
DX: E11.621 Type 2 diabetes mellitus with foot ulcer (principal); L97.511 Non-pressure chronic ulcer of other part of right foot limited to breakdown of skin; B35.1 Tinea unguium; I10 Essential (primary) hypertension; M19.071 Primary osteoarthritis, right ankle and foot; E78.00 Pure hypercholesterolemia, unspecified; E66.9 Obesity, unspecified; E11.69 Type 2 diabetes mellitus with other specified complication; M86.671 Other chronic osteomyelitis, right ankle and foot; Z89.411 Acquired absence of right great toe; Z89.421 Acquired absence of other right toe(s)
CPT/HCPCS: 11042

== ENCOUNTER → 2018-02-10 | Outpatient (CLI) | payer OTHER ==
[2018-02-10 11:04] VITALS: BP 127/71
== END | disposition home or self-care (01) ==
LOC: HBOWC 10:56
PROVIDERS: ATTEND Podiatrist
DX: E11.621 Type 2 diabetes mellitus with foot ulcer (principal); L97.511 Non-pressure chronic ulcer of other part of right foot limited to breakdown of skin; I10 Essential (primary) hypertension; B35.1 Tinea unguium; M19.071 Primary osteoarthritis, right ankle and foot; E78.00 Pure hypercholesterolemia, unspecified; E66.9 Obesity, unspecified; E11.69 Type 2 diabetes mellitus with other specified complication; M86.671 Other chronic osteomyelitis, right ankle and foot; Z89.411 Acquired absence of right great toe; Z89.421 Acquired absence of other right toe(s)
CPT/HCPCS: 11042

== ENCOUNTER → 2018-02-17 | Outpatient (CLI) | payer OTHER ==
[~2018-02-17] MED LIST changes: +COLL30OI TP
[2018-02-17 11:20] VITALS: BP 144/81
== END | disposition home or self-care (01) ==
LOC: HBOWC 10:43
PROVIDERS: ATTEND Podiatrist
DX: E11.621 Type 2 diabetes mellitus with foot ulcer (principal); L97.511 Non-pressure chronic ulcer of other part of right foot limited to breakdown of skin; I10 Essential (primary) hypertension; B35.1 Tinea unguium; M19.071 Primary osteoarthritis, right ankle and foot; E78.00 Pure hypercholesterolemia, unspecified; E66.9 Obesity, unspecified; E11.69 Type 2 diabetes mellitus with other specified complication; M86.671 Other chronic osteomyelitis, right ankle and foot; Z89.411 Acquired absence of right great toe; Z89.421 Acquired absence of other right toe(s)
CPT/HCPCS: 11042

== ENCOUNTER → 2018-03-02 | Outpatient (CLI) | payer OTHER ==
[2018-03-02 10:06] VITALS: BP 117/72
== END | disposition home or self-care (01) ==
LOC: HBOWC 09:39
PROVIDERS: ATTEND Nurse Practitioner Adult Health
DX: E11.621 Type 2 diabetes mellitus with foot ulcer (principal); L97.511 Non-pressure chronic ulcer of other part of right foot limited to breakdown of skin; I10 Essential (primary) hypertension; B35.1 Tinea unguium; M19.071 Primary osteoarthritis, right ankle and foot; E78.00 Pure hypercholesterolemia, unspecified; E66.9 Obesity, unspecified; E11.69 Type 2 diabetes mellitus with other specified complication; M86.671 Other chronic osteomyelitis, right ankle and foot; Z89.411 Acquired absence of right great toe; Z89.421 Acquired absence of other right toe(s)
CPT/HCPCS: 11042

== ENCOUNTER → 2018-03-09 | Outpatient (CLI) | payer OTHER ==
[2018-03-09 09:06] VITALS: BP 115/63
== END | disposition home or self-care (01) ==
LOC: HBOWC 08:40
PROVIDERS: ATTEND Nurse Practitioner Adult Health
DX: E11.621 Type 2 diabetes mellitus with foot ulcer (principal); L97.511 Non-pressure chronic ulcer of other part of right foot limited to breakdown of skin; B35.1 Tinea unguium; I10 Essential (primary) hypertension; E66.9 Obesity, unspecified; E11.69 Type 2 diabetes mellitus with other specified complication; M86.671 Other chronic osteomyelitis, right ankle and foot; M19.071 Primary osteoarthritis, right ankle and foot; E78.00 Pure hypercholesterolemia, unspecified; Z89.421 Acquired absence of other right toe(s); Z89.411 Acquired absence of right great toe
CPT/HCPCS: 11042

== ENCOUNTER → 2018-03-16 | Outpatient (CLI) | payer OTHER ==
[2018-03-16 10:25] VITALS: BP 115/62
== END | disposition home or self-care (01) ==
LOC: HBOWC 09:23
PROVIDERS: ATTEND Nurse Practitioner Adult Health
DX: E11.621 Type 2 diabetes mellitus with foot ulcer (principal); L97.511 Non-pressure chronic ulcer of other part of right foot limited to breakdown of skin; B35.1 Tinea unguium; I10 Essential (primary) hypertension; E66.9 Obesity, unspecified; E11.69 Type 2 diabetes mellitus with other specified complication; M86.671 Other chronic osteomyelitis, right ankle and foot; M19.071 Primary osteoarthritis, right ankle and foot; E78.00 Pure hypercholesterolemia, unspecified; Z89.421 Acquired absence of other right toe(s); Z89.411 Acquired absence of right great toe
CPT/HCPCS: 11042

== ENCOUNTER → 2018-03-23 | Outpatient (CLI) | payer OTHER ==
[2018-03-23 13:15] VITALS: BP 110/64
== END | disposition home or self-care (01) ==
LOC: HBOWC 13:05
PROVIDERS: ATTEND Nurse Practitioner Adult Health
DX: E11.621 Type 2 diabetes mellitus with foot ulcer (principal); L97.511 Non-pressure chronic ulcer of other part of right foot limited to breakdown of skin; B35.1 Tinea unguium; I10 Essential (primary) hypertension; E66.9 Obesity, unspecified; E11.69 Type 2 diabetes mellitus with other specified complication; M86.671 Other chronic osteomyelitis, right ankle and foot; M19.071 Primary osteoarthritis, right ankle and foot; E78.00 Pure hypercholesterolemia, unspecified; Z89.421 Acquired absence of other right toe(s); Z89.411 Acquired absence of right great toe
CPT/HCPCS: 11042

== ENCOUNTER → 2018-03-30 | Outpatient (CLI) | payer OTHER ==
[2018-03-30 10:12] VITALS: BP 119/58
== END | disposition home or self-care (01) ==
LOC: HBOWC 10:03
PROVIDERS: ATTEND Nurse Practitioner Adult Health
DX: E11.621 Type 2 diabetes mellitus with foot ulcer (principal); L97.511 Non-pressure chronic ulcer of other part of right foot limited to breakdown of skin; B35.1 Tinea unguium; I10 Essential (primary) hypertension; E66.9 Obesity, unspecified; E11.69 Type 2 diabetes mellitus with other specified complication; M86.671 Other chronic osteomyelitis, right ankle and foot; M19.071 Primary osteoarthritis, right ankle and foot; E78.00 Pure hypercholesterolemia, unspecified; Z89.421 Acquired absence of other right toe(s); Z89.411 Acquired absence of right great toe

== ENCOUNTER → 2018-04-06 | Outpatient (CLI) | payer OTHER ==
[~2018-04-06] MED LIST changes: +LIDOCAINE HCL 2% 5 ML JELLY TP ONE; +TETRACAINE/BENZOCAINE/BUTAMBEN 32 GM GEL TP ONE
[2018-04-06 10:01] VITALS: BP 133/76
== END | disposition home or self-care (01) ==
LOC: HBOWC 09:28
PROVIDERS: ATTEND Nurse Practitioner Adult Health
DX: T87.89 Other complications of amputation stump (principal); E11.621 Type 2 diabetes mellitus with foot ulcer; L97.511 Non-pressure chronic ulcer of other part of right foot limited to breakdown of skin; B35.1 Tinea unguium; I10 Essential (primary) hypertension; E66.9 Obesity, unspecified; E11.69 Type 2 diabetes mellitus with other specified complication; M86.671 Other chronic osteomyelitis, right ankle and foot; M19.071 Primary osteoarthritis, right ankle and foot; E78.00 Pure hypercholesterolemia, unspecified; Y83.5 Amputation of limb(s) as the cause of abnormal reaction of the patient, or of later complication, without mention of misadventure at the time of the procedure
CPT/HCPCS: 97597

== ENCOUNTER → 2018-04-13 | Outpatient (CLI) | payer OTHER ==
[~2018-04-13] MED LIST changes: -GEMF600T3 PO; +GEMF600T5 PO; -LIDOCAINE HCL 2% 5 ML JELLY TP ONE; -TETRACAINE/BENZOCAINE/BUTAMBEN 32 GM GEL TP ONE
[2018-04-13 10:10] VITALS: BP 110/65
== END | disposition home or self-care (01) ==
LOC: HBOWC 09:46
PROVIDERS: ATTEND Nurse Practitioner Adult Health
DX: T87.89 Other complications of amputation stump (principal); E11.621 Type 2 diabetes mellitus with foot ulcer; L97.511 Non-pressure chronic ulcer of other part of right foot limited to breakdown of skin; B35.1 Tinea unguium; I10 Essential (primary) hypertension; E66.9 Obesity, unspecified; E11.69 Type 2 diabetes mellitus with other specified complication; M86.671 Other chronic osteomyelitis, right ankle and foot; M19.071 Primary osteoarthritis, right ankle and foot; E78.00 Pure hypercholesterolemia, unspecified; Y83.5 Amputation of limb(s) as the cause of abnormal reaction of the patient, or of later complication, without mention of misadventure at the time of the procedure
CPT/HCPCS: 11042

== ENCOUNTER → 2018-04-20 | Outpatient (CLI) | payer OTHER ==
[~2018-04-20] MED LIST changes: +CIPR-278 PO; +LIDOCAINE HCL 2% 5 ML JELLY TP ONE
[2018-04-20 10:10] VITALS: BP 100/65
== END | disposition home or self-care (01) ==
LOC: HBOWC 09:58
PROVIDERS: ATTEND Nurse Practitioner Adult Health
DX: T87.89 Other complications of amputation stump (principal); E11.621 Type 2 diabetes mellitus with foot ulcer; L97.511 Non-pressure chronic ulcer of other part of right foot limited to breakdown of skin; B35.1 Tinea unguium; I10 Essential (primary) hypertension; E66.9 Obesity, unspecified; E11.69 Type 2 diabetes mellitus with other specified complication; M86.671 Other chronic osteomyelitis, right ankle and foot; M19.071 Primary osteoarthritis, right ankle and foot; E78.00 Pure hypercholesterolemia, unspecified; Y83.5 Amputation of limb(s) as the cause of abnormal reaction of the patient, or of later complication, without mention of misadventure at the time of the procedure
CPT/HCPCS: 97597

== ENCOUNTER → 2018-04-27 | Outpatient (CLI) | payer OTHER ==
[~2018-04-27] MED LIST changes: -COLL30OI TP; -LIDOCAINE HCL 2% 5 ML JELLY TP ONE
[2018-04-27 10:03] VITALS: BP 131/79
== END | disposition home or self-care (01) ==
LOC: HBOWC 09:31
PROVIDERS: ATTEND Nurse Practitioner Adult Health
DX: T87.89 Other complications of amputation stump (principal); E11.621 Type 2 diabetes mellitus with foot ulcer; L97.511 Non-pressure chronic ulcer of other part of right foot limited to breakdown of skin; B35.1 Tinea unguium; I10 Essential (primary) hypertension; E66.9 Obesity, unspecified; E11.69 Type 2 diabetes mellitus with other specified complication; M86.671 Other chronic osteomyelitis, right ankle and foot; M19.071 Primary osteoarthritis, right ankle and foot; E78.00 Pure hypercholesterolemia, unspecified; Y83.5 Amputation of limb(s) as the cause of abnormal reaction of the patient, or of later complication, without mention of misadventure at the time of the procedure
CPT/HCPCS: 97597

== ENCOUNTER → 2018-05-04 | Outpatient (CLI) | payer OTHER ==
[~2018-05-04] MED LIST changes: +LIDOCAINE HCL 2% 5 ML JELLY TP ONE
[2018-05-04 10:12] VITALS: BP 131/74
== END | disposition home or self-care (01) ==
LOC: HBOWC 09:49
PROVIDERS: ATTEND Nurse Practitioner Adult Health
DX: T87.89 Other complications of amputation stump (principal); E11.621 Type 2 diabetes mellitus with foot ulcer; L97.511 Non-pressure chronic ulcer of other part of right foot limited to breakdown of skin; B35.1 Tinea unguium; I10 Essential (primary) hypertension; E66.9 Obesity, unspecified; E11.69 Type 2 diabetes mellitus with other specified complication; M86.671 Other chronic osteomyelitis, right ankle and foot; M19.071 Primary osteoarthritis, right ankle and foot; E78.00 Pure hypercholesterolemia, unspecified; Y83.5 Amputation of limb(s) as the cause of abnormal reaction of the patient, or of later complication, without mention of misadventure at the time of the procedure
CPT/HCPCS: 97597

== ENCOUNTER → 2018-05-18 | Outpatient (CLI) | payer OTHER ==
[~2018-05-18] MED LIST changes: -LIDOCAINE HCL 2% 5 ML JELLY TP ONE; +METF-960 PO; -METF500T6 PO
[2018-05-18 10:05] VITALS: BP 112/75
== END | disposition home or self-care (01) ==
LOC: HBOWC 09:37
PROVIDERS: ATTEND Nurse Practitioner Adult Health
DX: T87.89 Other complications of amputation stump (principal); E11.621 Type 2 diabetes mellitus with foot ulcer; L97.511 Non-pressure chronic ulcer of other part of right foot limited to breakdown of skin; I10 Essential (primary) hypertension; B35.1 Tinea unguium; E66.9 Obesity, unspecified; E11.69 Type 2 diabetes mellitus with other specified complication; M86.671 Other chronic osteomyelitis, right ankle and foot; M19.071 Primary osteoarthritis, right ankle and foot; E78.00 Pure hypercholesterolemia, unspecified; Y83.5 Amputation of limb(s) as the cause of abnormal reaction of the patient, or of later complication, without mention of misadventure at the time of the procedure
CPT/HCPCS: 97597

== ENCOUNTER → 2018-05-25 | Outpatient (CLI) | payer OTHER ==
[2018-05-25 10:08] VITALS: BP 125/65
== END | disposition home or self-care (01) ==
LOC: HBOWC 09:23
PROVIDERS: ATTEND Nurse Practitioner Adult Health
DX: T87.89 Other complications of amputation stump (principal); E11.621 Type 2 diabetes mellitus with foot ulcer; L97.511 Non-pressure chronic ulcer of other part of right foot limited to breakdown of skin; I10 Essential (primary) hypertension; B35.1 Tinea unguium; E66.9 Obesity, unspecified; E11.69 Type 2 diabetes mellitus with other specified complication; M86.671 Other chronic osteomyelitis, right ankle and foot; M19.071 Primary osteoarthritis, right ankle and foot; E78.00 Pure hypercholesterolemia, unspecified; Y83.5 Amputation of limb(s) as the cause of abnormal reaction of the patient, or of later complication, without mention of misadventure at the time of the procedure
CPT/HCPCS: 97597

== ENCOUNTER → 2018-06-08 | Outpatient (CLI) | payer OTHER ==
[2018-06-08 10:20] VITALS: BP 112/57
== END | disposition home or self-care (01) ==
LOC: HBOWC 09:51
PROVIDERS: ATTEND Nurse Practitioner Adult Health
DX: T87.89 Other complications of amputation stump (principal); E11.621 Type 2 diabetes mellitus with foot ulcer; L97.511 Non-pressure chronic ulcer of other part of right foot limited to breakdown of skin; I10 Essential (primary) hypertension; B35.1 Tinea unguium; E66.9 Obesity, unspecified; E11.69 Type 2 diabetes mellitus with other specified complication; M86.671 Other chronic osteomyelitis, right ankle and foot; M19.071 Primary osteoarthritis, right ankle and foot; E78.00 Pure hypercholesterolemia, unspecified; Y83.5 Amputation of limb(s) as the cause of abnormal reaction of the patient, or of later complication, without mention of misadventure at the time of the procedure
CPT/HCPCS: 97597

== ENCOUNTER → 2018-06-15 | Outpatient (CLI) | payer OTHER ==
[2018-06-15 10:44] VITALS: BP 129/64
== END | disposition home or self-care (01) ==
LOC: HBOWC 09:36
PROVIDERS: ATTEND Nurse Practitioner Adult Health
DX: T87.89 Other complications of amputation stump (principal); E11.621 Type 2 diabetes mellitus with foot ulcer; L97.511 Non-pressure chronic ulcer of other part of right foot limited to breakdown of skin; I10 Essential (primary) hypertension; B35.1 Tinea unguium; E66.9 Obesity, unspecified; E11.69 Type 2 diabetes mellitus with other specified complication; M86.671 Other chronic osteomyelitis, right ankle and foot; M19.071 Primary osteoarthritis, right ankle and foot; E78.00 Pure hypercholesterolemia, unspecified; Y83.5 Amputation of limb(s) as the cause of abnormal reaction of the patient, or of later complication, without mention of misadventure at the time of the procedure
CPT/HCPCS: 97597

== ENCOUNTER → 2018-06-22 | Outpatient (CLI) | payer OTHER ==
[2018-06-22 10:01] VITALS: BP 129/74
== END | disposition home or self-care (01) ==
LOC: HBOWC 09:45
PROVIDERS: ATTEND Nurse Practitioner Adult Health
DX: T87.89 Other complications of amputation stump (principal); E11.621 Type 2 diabetes mellitus with foot ulcer; L97.511 Non-pressure chronic ulcer of other part of right foot limited to breakdown of skin; I10 Essential (primary) hypertension; B35.1 Tinea unguium; E66.9 Obesity, unspecified; E11.69 Type 2 diabetes mellitus with other specified complication; M86.671 Other chronic osteomyelitis, right ankle and foot; M19.071 Primary osteoarthritis, right ankle and foot; E78.00 Pure hypercholesterolemia, unspecified; Y83.5 Amputation of limb(s) as the cause of abnormal reaction of the patient, or of later complication, without mention of misadventure at the time of the procedure
CPT/HCPCS: 97597

== ENCOUNTER → 2018-06-29 | Outpatient (CLI) | payer OTHER ==
[2018-06-29 09:53] VITALS: BP 104/63
== END | disposition home or self-care (01) ==
LOC: HBOWC 09:27
PROVIDERS: ATTEND Nurse Practitioner Adult Health
DX: T87.89 Other complications of amputation stump (principal); E11.621 Type 2 diabetes mellitus with foot ulcer; L97.511 Non-pressure chronic ulcer of other part of right foot limited to breakdown of skin; I10 Essential (primary) hypertension; B35.1 Tinea unguium; E66.9 Obesity, unspecified; E11.69 Type 2 diabetes mellitus with other specified complication; M86.671 Other chronic osteomyelitis, right ankle and foot; M19.071 Primary osteoarthritis, right ankle and foot; E78.00 Pure hypercholesterolemia, unspecified; Y83.5 Amputation of limb(s) as the cause of abnormal reaction of the patient, or of later complication, without mention of misadventure at the time of the procedure
CPT/HCPCS: 97597

== ENCOUNTER → 2018-07-06 | Outpatient (CLI) | payer OTHER ==
[2018-07-06 10:25] VITALS: BP 116/58
== END | disposition home or self-care (01) ==
LOC: HBOWC 09:40
PROVIDERS: ATTEND Nurse Practitioner Adult Health
DX: T87.89 Other complications of amputation stump (principal); E11.621 Type 2 diabetes mellitus with foot ulcer; L97.511 Non-pressure chronic ulcer of other part of right foot limited to breakdown of skin; L84 Corns and callosities; I10 Essential (primary) hypertension; E66.9 Obesity, unspecified; E78.00 Pure hypercholesterolemia, unspecified; B35.1 Tinea unguium; Y83.5 Amputation of limb(s) as the cause of abnormal reaction of the patient, or of later complication, without mention of misadventure at the time of the procedure
CPT/HCPCS: 97597

== ENCOUNTER → 2018-08-17 | Outpatient (CLI) | payer OTHER ==
[2018-08-17 10:10] VITALS: BP 135/78
== END | disposition home or self-care (01) ==
LOC: HBOWC 09:44
PROVIDERS: ATTEND Nurse Practitioner Adult Health
DX: T87.89 Other complications of amputation stump (principal); E11.621 Type 2 diabetes mellitus with foot ulcer; L97.512 Non-pressure chronic ulcer of other part of right foot with fat layer exposed; I10 Essential (primary) hypertension; L84 Corns and callosities; E78.00 Pure hypercholesterolemia, unspecified; E11.69 Type 2 diabetes mellitus with other specified complication; M86.671 Other chronic osteomyelitis, right ankle and foot; E66.9 Obesity, unspecified; Y83.5 Amputation of limb(s) as the cause of abnormal reaction of the patient, or of later complication, without mention of misadventure at the time of the procedure
CPT/HCPCS: 11042